=== PATIENT | male | born 1970 | race African-American/Black ===

== ENCOUNTER 2022-06-22 12:44 | Emergency (ER) | payer OTHER, SELFPAY ==
[2022-06-22 12:49] VITALS: BP 144/90; PULSE 94; O2SAT 99
--- NOTE | 2022-06-22 13:02 | ED_ITS ---
HPI - URI/Sore Throat General Chief Complaint: Dental/Oral Stated Complaint: Sore Throat Related Data Allergies Allergy/AdvReac Type Severity Reaction Status Date / Time amoxicillin Allergy Unknown Verified 06/22/22 13:06 COUNTS INCLUDE 234 BEDS AT THE [facility] Social History Social History Advance Directives: No Advance Directives Information Provided: No Physical Exam Vital Signs: Vital Signs: Last Vital Signs Temp 99.6 F 06/22/22 13:03 Pulse 87 06/22/22 13:03 Resp 18 06/22/22 13:03 BP 100/57 L 06/22/22 13:03 Pulse Ox 97 06/22/22 13:03 O2 Del Method 06/22/22 13:03 BMI result Body Mass Index 16.7 Course Course Course Narrative: This is a rapid medical exam. Deferred additional HPI, ROS, PE to primary provider. 52 yo male with history of HIV not compliant with [employer] in more then a month here with sore throat, tactile temps, body aches, chills x 1 month. Will check strep testing, flu, covid and rsv and labs. VSS MDM - URI/Sore Throat Lab Data Result diagrams: 06/22/22 13:10 06/22/22 13:10 Labs: Lab Results 06/22/22 06/22/22 Range/Units 13:10 13:10 WBC 7.3 (4.8-10.8) X10*3/uL RBC 5.11 (4.60-5.80) X10*6/uL Hgb 13.1 L (14.0-18.0) g/dl Hct 40.5 L (42.0-52.0) % MCV 79.3 L (80.0-98.0) fL MCH 25.6 L (27.0-33.0) pg MCHC 32.3 (31.0-36.0) g/dl RDW 13.3 (11.0-16.0) % Plt Count 330 (160-400) X10*3/uL MPV 9.0 L (9.4-12.4) fL Immature Gran % (Auto) 0.3 (0.0-0.4) % Neut % (Auto) 56.8 (45-73) % Lymph % (Auto) 27.9 (20-40) % [place] % (Auto) 12.9 H (2-11) % Eos % (Auto) 1.4 (0-4) % Baso % (Auto) 0.7 (0-2) % Lymph # (Auto) 2.0 (1.2-4.9) X10*3/uL [place] # (Auto) 0.9 (0.1-1.2) X10*3/uL Eos # (Auto) 0.1 (0.0-0.4) X10*3/uL Baso # (Auto) 0.1 (0.0-0.2) X10*3/uL Abs Immat Gran (auto) 0.02 (0.00-0.03) X10*3/uL Absolute Neuts (auto) 4.2 (2.0-8.3) x10*3/uL Absolute Nucleated RBC 0.000 (0.0-0.012) X10*3/uL Nucleated RBC % (auto) 0.0 (0.0-0.2) /100WBC Sodium 135 (135-145) mmol/L Potassium 4.0 (3.3-5.1) mmol/L Chloride 105 (96-108) mmol/L Carbon Dioxide 29 (22-29) mmol/L Anion Gap 5 L (12-20) BUN 8 L (9-16) mg/dL Creatinine 0.94 (0.5-1.4) mg/dL Estim Creat Clear Calc 74.9 Estimated GFR > 60 Random Glucose 102 (60-115) mg/dL Calcium 8.9 (8.4-10.2) mg/dL Total Bilirubin 0.7 (0.0-1.0) mg/dL Direct Bilirubin 0.3 (0.0-0.5) mg/dL AST 15 (5-37) U/L ALT 11 (0-40) U/L Alkaline Phosphatase 79 (39-117) U/L Total Protein 7.0 (6.5-8.0) g/dL Albumin 3.5 (3.5-5.0) g/dL Discharge Plan Discharge Clinical Impression: Acute sore throat Patient Disposition: Elopement Interventions: ED Discharge Assessment Last Done: 06/22/22 15:09 Discharge Date/Time: 06/22/22 15:10
[2022-06-22 13:03] VITALS: BP 100/57; PULSE 87; RESP 18; TEMP 37.6; O2SAT 97; BMI 16.7
[2022-06-22 13:13] LABS: MANUAL DIFF FLAG NO
[2022-06-22 13:15] LABS: Basophils Absolute Auto 0.1 X10*3/uL (0.0-0.2); Basophils Percent Auto 0.7 % (0-2); Eosinophils Absolute Auto 0.1 X10*3/uL (0.0-0.4); Eosinophils Percent Auto 1.4 % (0-4); Hematocrit 40.5 % (42.0-52.0); Hemoglobin 13.1 g/dl (14.0-18.0); Imm Gran Abs Auto 0.02 X10*3/uL (0.00-0.03); Imm Gran Pct Auto 0.3 % (0.0-0.4); Lymphocytes Percent Auto 27.9 % (20-40); Mean Corpuscular HGB Conc 32.3 g/dl (31.0-36.0); Mean Corpuscular Hemoglobin 25.6 pg (27.0-33.0); Mean Corpuscular Volume 79.3 fL (80.0-98.0); Monocytes Absolute Auto 0.9 X10*3/uL (0.1-1.2); Monocytes Percent Auto 12.9 % (2-11); Neutrophils Absolute Auto 4.2 x10*3/uL (2.0-8.3); Neutrophils Percent Auto 56.8 % (45-73); Platelet Count 330 X10*3/uL (160-400); Red Blood Count 5.11 X10*6/uL (4.60-5.80); Red Cell Distribution Width 13.3 % (11.0-16.0); White Blood Count 7.3 X10*3/uL (4.8-10.8)
[2022-06-22 13:42] LABS: Alanine Aminotransferase 11 U/L (0-40); Albumin Level 3.5 g/dL (3.5-5.0); Alkaline Phosphatase 79 U/L (39-117); Anion Gap 5 (12-20); Aspartate Amino Transferase 15 U/L (5-37); Bilirubin Direct 0.3 mg/dL (0.0-0.5); Bilirubin Total 0.7 mg/dL (0.0-1.0); Blood Urea Nitrogen 8 mg/dL (9-16); Calcium 8.9 mg/dL (8.4-10.2); Carbon Dioxide 29 mmol/L (22-29); Chloride 105 mmol/L (96-108); Creatinine Clr Calc Pharmacy 74.9; Estimated Glomerular Filt Rate > 60; Glucose Random 102 mg/dL (60-115); Sodium 135 mmol/L (135-145)
== END 2022-06-22 15:10 | disposition left against medical advice (07) ==
PROVIDERS: Nurse Practitioner Family; Emergency Provider Emergency Medicine
DX: J02.9 Acute pharyngitis, unspecified (principal); Z79.899 Other long term (current) drug therapy
CPT/HCPCS: 36415; 80048; 80076; 85025; 99282; 99283

== ENCOUNTER 2023-02-27 03:29 | Emergency (ER) | payer MEDICAID, SELFPAY ==
--- NOTE | ~2023-02-27 | CT_ITS ---
EXAMINATION: CT ABDOMEN AND PELVIS WITH CONTRAST CLINICAL INFORMATION: Evaluate gluteal abscess. COMPARISON: None available. TECHNIQUE: Multidetector volumetric images were obtained from the superior aspect of the liver through the pubic symphysis following administration 85 mL of Omnipaque 350 intravenous contrast. Sagittal and coronal reformatted images were obtained on the technologist's workstation. Oral contrast: No This CT examination was performed using dose optimization techniques as appropriate, variously including the following: *Automated exposure control *Adjustment of mA and/or kV according to patient size (this includes techniques or standardized protocols for targeted exams where dose is matched to indication/reason for exam; i.e. extremities or head) *Use of iterative reconstruction technique DLP: 422 mGy-cm FINDINGS: LUNG BASES: Normal. No pulmonary consolidation or pleural effusion. LIVER: The liver has normal size, shape, and attenuation. No evidence of liver mass. GALLBLADDER AND BILIARY TREE: Gallbladder is without radiopaque stones, wall thickening or pericholecystic fluid. No dilated bile ducts. PANCREAS: Normal. No edema, pancreatic ductal dilatation or mass. SPLEEN: Normal. ADRENAL GLANDS: Normal. KIDNEYS AND URETERS: The kidneys have normal size and cortical thickness. No perinephric edema or fluid collection. No urolithiasis or hydroureteronephrosis. Small 0.5 cm simple cortical cyst of the upper pole of the right kidney is present. No renal imaging follow-up recommended. BLADDER: Normal. No calculi or wall thickening. BOWEL AND PERITONEUM: Stomach and small bowel are underdistended. The appendix is normal. No focal bowel wall thickening, mesenteric fat stranding or free fluid. No pneumoperitoneum or intra-abdominal abscess. ABDOMINAL WALL: Unremarkable. VASCULATURE: Normal. LYMPH NODES: No retroperitoneal or iliac chain lymphadenopathy. Bilateral inguinal lymphadenopathy is present. The largest right and left inguinal lymph nodes measure 1.4 cm and 1.5 cm short axis dimension, respectively. PELVIC VISCERA: Prostate gland is unremarkable. No pelvic free fluid. MUSCULOSKELETAL: The visualized lower thoracic and lumbar vertebra have normal density, height and alignment. There appears to be an old healed nondisplaced fracture near the tip of the coccyx. No acute osseous injury within the pelvis. OTHER: Mild edema is present in the subcutaneous tissues of the lateral pelvis, perineum and gluteal regions including subcutaneous tissues around the gluteal cleft. There is no focal fluid collection within the subcutaneous tissue compartment or within the gluteus muscles. No soft tissue gas. Incidentally noted are multiple phleboliths of the scrotal venous plexus. CT/CT abdomen pelvis w IV con IMPRESSION: * No evidence of soft tissue abscess in subcutaneous tissues or gluteus muscles. * Mild nonspecific edema is present within subcutaneous tissues in the gluteal region. * Mild bilateral inguinal lymphadenopathy is present. Otherwise, no lymphadenopathy within the abdomen or pelvis.
[2023-02-27 04:00] VITALS: BP 123/89; BP 142/64; PULSE 82; PULSE 98; RESP 18; TEMP 37.1; O2SAT 98; BMI 22.1
[2023-02-27 04:04] VITALS: BP 123/84; PULSE 98; RESP 18; TEMP 37.1; O2SAT 98
--- NOTE | 2023-02-27 04:30 | ED_ITS ---
HPI - Skin/Abscess/Foreign Bdy General Chief complaint: Skin/Abscess/Foreign Body Stated complaint: Open sore on buttocks/ pain Time Seen by Provider: 02/27/23 04:30 Source: patient Mode of arrival: ambulatory Limitations: no limitations History of Present Illness HPI narrative: Patient with History of HIV noncompliant to medication not taking any medication for last 6 months has not seen a specialist for long time comes here for fungating lesion with foul smell in his left gluteal fold , tender to touch, no fever no chills no abdominal pain Related Data Previous Rx's Medication Instructions Recorded sulfamethoxazole 800 1 tab PO BID #20 tabs 02/27/23 mg-trimethoprim 160 mg tablet (Bactrim DS) Allergies Allergy/AdvReac Type Severity Reaction Status Date / Time amoxicillin Allergy Unknown Verified 06/22/22 13:06 Review of Systems Review of Systems: Yes all other systems are reviewed and are negative [facility] Social History Social History Alcohol intake: current Alcohol intake frequency: holidays/special occasions only Smoked in Last 30 Days: Yes Use of substances other than those prescribed or required for medical reasons: Yes Substance Use Type: Crack/Cocaine Advance Directives: No Advance Directives Information Provided: No Physical Exam Vital Signs: Vital Signs: Last Vital Signs Temp 98.7 F 02/27/23 04:04 Pulse 65 02/27/23 06:17 Resp 18 02/27/23 06:17 BP 128/71 02/27/23 06:17 Pulse Ox 98 02/27/23 06:17 O2 Del Method Room Air 02/27/23 06:17 BMI result Body Mass Index 22.1 Appearance: Alert. Oriented X3. No acute distress. ENT: Pharynx normal. Oral Mucosa moist Neck: Normal inspection. Neck supple. CVS: Normal heart rate and rhythm. Pulses normal. Respiratory: No respiratory distress. Equal air entry bilateral, no wheezing/rales/rhonchi Abdomen: Soft and nontender. Bowel sounds are present, no mass palpable, no CVA tenderness Skin: Skin warm and dry. Tender to touch in left gluteal area with foul- smelling discharge. Extremities: No lower extremity edema. No calf tenderness Neuro: Oriented X 3. No motor deficit. No sensory deficit.No cerebellar signs , cranial nerves II-XII intact Medications Administered Discontinued Medications Generic Name Dose Route Start Last Admin Trade Name Boo PRN Reason Stop Dose Admin Vancomycin HCl 1,000 mg/ 270 mls @ 270 mls/hr 02/27/23 04:45 02/27/23 05:20 Sodium Chloride IV 02/27/23 05:44 Not Given ONCE ONE Piperacillin Sod/Tazobactam 50 mls @ 100 mls/hr 02/27/23 04:45 02/27/23 05:59 Sod 3.375 gm/ Sodium Chloride IV 02/27/23 05:14 Infused ONCE ONE Infusion Vancomycin HCl 1,000 mg/ 535 mls @ 267.5 mls/hr 02/27/23 05:00 02/27/23 05:59 Vancomycin HCl 750 mg/ Sodium IV 02/27/23 06:59 267.5 mls/hr Chloride ONCE ONE Administration Iohexol 85 ml 02/27/23 06:17 02/27/23 06:17 Iohexol 350 Mg/Ml 100 Ml Infus..Btl IV 02/27/23 06:18 85 ml ONCE ONE Administration Medical Decision Making Medical Decision Making [facility] Narrative: Patient with condylomata acuminata with faul smelling discharge will do CT scan of the pelvis to rule out deeper abscess check HIV load CT scan of the abdomen pelvis negative for deeper infection final report is pending discharge patient home advised to follow up with infectious disease Lab Data [facility] Lab Attestation statement: I reviewed the patient's lab results. 02/27/23 05:15 02/27/23 05:15 Labs: Lab Results 02/27/23 02/27/23 02/27/23 Range/Units 05:15 05:15 05:15 WBC 6.5 (4.8-10.8) X10*3/uL RBC 4.76 (4.60-5.80) X10*6/uL Hgb 12.1 L (14.0-18.0) g/dl Hct 38.6 L (42.0-52.0) % MCV 81.1 (80.0-98.0) fL MCH 25.4 L (27.0-33.0) pg MCHC 31.3 (31.0-36.0) g/dl RDW 14.5 (11.0-16.0) % Plt Count 223 D (160-400) X10*3/uL MPV 9.5 (9.4-12.4) fL Immature Gran % (Auto) 0.2 (0.0-0.4) % Neut % (Auto) 30.5 L (45-73) % Lymph % (Auto) 51.8 H (20-40) % [place] % (Auto) 13.2 H (2-11) % Eos % (Auto) 3.7 (0-4) % Baso % (Auto) 0.6 (0-2) % Lymph # (Auto) 3.3 (1.2-4.9) X10*3/uL [place] # (Auto) 0.9 (0.1-1.2) X10*3/uL Eos # (Auto) 0.2 (0.0-0.4) X10*3/uL Baso # (Auto) 0.0 (0.0-0.2) X10*3/uL Abs Immat Gran (auto) 0.01 (0.00-0.03) X10*3/uL Absolute Neuts (auto) 2.0 (2.0-8.3) x10*3/uL Absolute Nucleated RBC 0.000 (0.0-0.012) X10*3/uL Nucleated RBC % (auto) 0.0 (0.0-0.2) /100WBC Sodium 142 (135-145) mmol/L Potassium 3.9 (3.3-5.1) mmol/L Chloride 109 H (96-108) mmol/L Carbon Dioxide 26 (22-29) mmol/L Anion Gap 11 L (12-20) BUN 14 (9-16) mg/dL Creatinine 0.94 (0.5-1.4) mg/dL Estim Creat Clear Calc 91.4 Estimated GFR > 60 Random Glucose 83 (60-115) mg/dL Lactic Acid 0.6 (0.5-2.0) mmol/L Calcium 9.0 (8.4-10.2) mg/dL Total Bilirubin 0.2 (0.0-1.0) mg/dL AST 25 (5-37) U/L ALT 19 (0-40) U/L Alkaline Phosphatase 79 (39-117) U/L Total Protein 7.0 (6.5-8.0) g/dL Albumin 3.2 L (3.5-5.0) g/dL COVID-19 (JOE) (Negative) COVID-19 Clin Com 02/27/23 Range/Units 05:17 WBC (4.8-10.8) X10*3/uL RBC (4.60-5.80) X10*6/uL Hgb (14.0-18.0) g/dl Hct (42.0-52.0) % MCV (80.0-98.0) fL MCH (27.0-33.0) pg MCHC (31.0-36.0) g/dl RDW (11.0-16.0) % Plt Count (160-400) X10*3/uL MPV (9.4-12.4) fL Immature Gran % (Auto) (0.0-0.4) % Neut % (Auto) (45-73) % Lymph % (Auto) (20-40) % [place] % (Auto) (2-11) % Eos % (Auto) (0-4) % Baso % (Auto) (0-2) % Lymph # (Auto) (1.2-4.9) X10*3/uL [place] # (Auto) (0.1-1.2) X10*3/uL Eos # (Auto) (0.0-0.4) X10*3/uL Baso # (Auto) (0.0-0.2) X10*3/uL Abs Immat Gran (auto) (0.00-0.03) X10*3/uL Absolute Neuts (auto) (2.0-8.3) x10*3/uL Absolute Nucleated RBC (0.0-0.012) X10*3/uL Nucleated RBC % (auto) (0.0-0.2) /100WBC Sodium (135-145) mmol/L Potassium (3.3-5.1) mmol/L Chloride (96-108) mmol/L Carbon Dioxide (22-29) mmol/L Anion Gap (12-20) BUN (9-16) mg/dL Creatinine (0.5-1.4) mg/dL Estim Creat Clear Calc Estimated GFR Random Glucose (60-115) mg/dL Lactic Acid (0.5-2.0) mmol/L Calcium (8.4-10.2) mg/dL Total Bilirubin (0.0-1.0) mg/dL AST (5-37) U/L ALT (0-40) U/L Alkaline Phosphatase (39-117) U/L Total Protein (6.5-8.0) g/dL Albumin (3.5-5.0) g/dL COVID-19 (JOE) Negative (Negative) COVID-19 Clin Com See Note Discharge Plan Discharge Clinical Impression: 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
[2023-02-27] MEDS: Piperacillin Sodium/Tazobactam 3.375 GM in 0.9 % Sodium Chloride 50 ML IV (05:16)
[2023-02-27 05:23] LABS: Basophils Percent Auto 0.6 % (0-2); Eosinophils Absolute Auto 0.2 X10*3/uL (0.0-0.4); Eosinophils Percent Auto 3.7 % (0-4); Hematocrit 38.6 % (42.0-52.0); Hemoglobin 12.1 g/dl (14.0-18.0); Imm Gran Abs Auto 0.01 X10*3/uL (0.00-0.03); Imm Gran Pct Auto 0.2 % (0.0-0.4); Lymphocytes Absolute Auto 3.3 X10*3/uL (1.2-4.9); Lymphocytes Percent Auto 51.8 % (20-40); MANUAL DIFF FLAG NO; Mean Corpuscular HGB Conc 31.3 g/dl (31.0-36.0); Mean Corpuscular Hemoglobin 25.4 pg (27.0-33.0); Mean Corpuscular Volume 81.1 fL (80.0-98.0); Mean Platelet Volume 9.5 fL (9.4-12.4); Monocytes Absolute Auto 0.9 X10*3/uL (0.1-1.2); Monocytes Percent Auto 13.2 % (2-11); Neutrophils Percent Auto 30.5 % (45-73); Platelet Count 223 X10*3/uL (160-400); Red Blood Count 4.76 X10*6/uL (4.60-5.80); Red Cell Distribution Width 14.5 % (11.0-16.0); White Blood Count 6.5 X10*3/uL (4.8-10.8)
[2023-02-27 05:32] LABS: Lactic Acid 0.6 mmol/L (0.5-2.0)
[2023-02-27 05:36] LABS: Alanine Aminotransferase 19 U/L (0-40); Albumin Level 3.2 g/dL (3.5-5.0); Alkaline Phosphatase 79 U/L (39-117); Anion Gap 11 (12-20); Aspartate Amino Transferase 25 U/L (5-37); Bilirubin Total 0.2 mg/dL (0.0-1.0); Blood Urea Nitrogen 14 mg/dL (9-16); Carbon Dioxide 26 mmol/L (22-29); Chloride 109 mmol/L (96-108); Creatinine Clr Calc Pharmacy 91.4; Estimated Glomerular Filt Rate > 60; Glucose Random 83 mg/dL (60-115); Potassium 3.9 mmol/L (3.3-5.1); Sodium 142 mmol/L (135-145)
[2023-02-27 05:43] LABS: COVID-19 Test Negative (Negative); IDNOW Serial# 6674DD1D
[2023-02-27] MEDS: vancomycin HCL 1,000 MG, vancomycin HCL 750 MG in 0.9 % Sodium Chloride 500 ML 267.5 MG IV (05:59)
[2023-02-27 06:17] VITALS: BP 128/71; PULSE 65; RESP 18; O2SAT 98
[2023-02-27] MEDS: iohexoL 350 MG/ML 100 ML INFUS..BTL 85 ML IV (06:17)
[2023-03-02 12:14] LABS: Absolute CD3 Count 2533 cells/uL (840-3060); Absolute CD4 Count 1129 cells/uL (490-1740); Absolute CD8 Count 1403 cells/uL (180-1170); Absolute Lymphocytes 3391 cells/uL (850-3900); Percent CD3 Cells 75 % (57-85); Percent CD4 Cells 33 % (30-61); Percent CD8 Cells 41 % (12-42)
[2023-03-03 14:07] LABS: HIV RNA PCR Qn Copies 9150 copies/mL (NOT DETECTED); HIV RNA PCR Qn Log Copies 3.96 (NOT DETECTED)
== END 2023-02-27 07:03 | disposition home or self-care (01) ==
PROVIDERS: Emergency Provider Internal Medicine
DX: A63.0 Anogenital (venereal) warts (principal); B20 Human immunodeficiency virus [HIV] disease; Z91.148 Patient's other noncompliance with medication regimen for other reason; Z20.822 Contact with and (suspected) exposure to COVID-19
CPT/HCPCS: 36415; 74177; 80053; 83605; 85025; 86359; 86360; 87040; 87536; 87635; 96365; 96375; 99284; J2543; J3370; Q9967